=== PATIENT | male | born 1995 ===

== ENCOUNTER 2023-01-20 15:35 | Outpatient (CLI) | payer MEDICAID, SELFPAY ==
--- NOTE | 2023-01-20 15:44 | MR_ITS ---
WS: [id number] MRI LUMBAR SPINE NONCONTRAST HISTORY: LUMBAGO OF LUMBAR REGION WITH SCIATICA COMPARISON: 06/18/2011 TECHNIQUE: Sagittal and axial multisequence imaging is submitted. T7, T12, L2 and L4 vertebral hemangiomas. Normal lumbar alignment with no compression fractures or marrow edema. Moderate disc space narrowing and desiccation at L4-5. Conus terminates normally at L1-2 disc level. L1-L2: Normal. L2-L3: Normal. L3-L4: Mild annular disc bulging. Small amount of fluid in the disc spaces. No significant stenosis. L4-L5: Large central disc protrusion with a large extruded component extending into the RIGHT subarti cular recess. Extruded disc extends caudad to the disc level by 2.3 cm. There is significant mass eff ect and displacement of the thecal sac and the right-sided nerve roots. In particular, displacement o f the traversing RIGHT L5 nerve root. The central component is also causing deformity and encroachmen t upon the LEFT traversing L5 nerve root also. Moderate facet joint arthritis. No significant foramin al stenosis. L5-S1: Mild annular disc bulging, minimally asymmetric to the RIGHT. Mild contact on the exiting RIGH T L5 nerve root with only mild RIGHT foraminal stenosis. Mild bilateral facet joint arthritis. MR/MR lumbar spine wo con* [id number] IMPRESSION: 1. Large central disc protrusion at L4-5 with an extruded component extending into the RIGHT subarticular recess. The extruded disc is new since 2010. There is significant deformity and displacement of the RIGHT lateral thecal sac and t raversing RIGHT L5 nerve root. Additional central stenosis and contact on the L EFT traversing nerve root is moderate. 2. Very mild RIGHT foraminal stenosis at L5-S1 with contact on the exiting RIG HT L5 nerve root.
== END 2023-01-20 15:36 | disposition home or self-care (01) ==
LOC: RAD 15:38
PROVIDERS: PCP Nurse Practitioner Family; Visit Provider Nurse Practitioner Family
DX: M54.42 Lumbago with sciatica, left side (principal); M54.41 Lumbago with sciatica, right side; M51.26 Other intervertebral disc displacement, lumbar region; M48.07 Spinal stenosis, lumbosacral region
CPT/HCPCS: 72148

== ENCOUNTER 2025-02-22 07:08 | Outpatient (CLI) | payer BC, SELFPAY ==
--- NOTE | 2025-02-22 07:12 | MR_ITS ---
WS: [id number] MRI LUMBAR SPINE NONCONTRAST TECHNIQUE: Sagittal T1, T2 and STIR imaging. Axial T1 and T2 imaging. CLINICAL INFORMATION: ACUTE RIGHT-SIDED LOW BACK PAIN WITH RIGHT SIDED SCIATICA COMPARISON: 01/20/2023 FINDINGS: Incidental hemangioma C7. Incidental hemangiomas T12, L2, and L4. L1-L2: Normal. L2-L3: Slight narrowing the LEFT subarticular recess. Mild facet arthropathy. L3-L4: Mild annular bulging. Mild facet arthropathy. Spinal canal and foramen are patent. L4-L5: Shallow central disc protrusion with moderate central canal stenosis. Impingement traversing L5 nerve roots. This appears slightly progressed compared to previous. Moderate facet arthropathy. Mild RIGHT foraminal narrowing. Previously described disc extrusion at this level has involuted or been resected. Residual small central protrusion. L5-S1: Mild annular bulging. Mild facet arthropathy. Spinal canal and foramen are patent. Visualized pelvic bony structures: Normal. Paravertebral soft tissues: Normal. MR/MR lumbar spine wo con* [id number] IMPRESSION: 1. Central disc extrusion at L4-5 is involuted or been resected. 2. Small residual disc protrusion at L4-5 with moderate central canal stenosis slightly progressed compared to previous with impingement on the traversing L5 nerve roots bilaterally. 3. Mild RIGHT L4-5 foraminal narrowing.
== END 2025-02-22 07:09 | disposition home or self-care (01) ==
LOC: RAD 07:09
PROVIDERS: PCP Family Medicine; Visit Provider Family Medicine
DX: M51.16 Intervertebral disc disorders with radiculopathy, lumbar region (principal); M48.061 Spinal stenosis, lumbar region without neurogenic claudication
CPT/HCPCS: 72148